=== PATIENT | female | born 1970 | race Hispanic/Latino ===

== ENCOUNTER 2020-06-27 18:40 | Emergency (ER) | payer BC | END 2020-06-27 19:54 | disposition home or self-care (01) | LOC: EDH 18:40 | DX: S76.112A Strain of left quadriceps muscle, fascia and tendon, initial encounter (principal); Z98.890 Other specified postprocedural states; W01.0XXA Fall on same level from slipping, tripping and stumbling without subsequent striking against object, initial encounter; Y93.89 Activity, other specified; Y92.89 Other specified places as the place of occurrence of the external cause; Y99.8 Other external cause status | CPT/HCPCS: 99281 ==

== ENCOUNTER 2021-07-27 07:26 | Emergency (ER) | payer BC ==
[~2021-07-27] VITALS: Ht 154.9 cm; Wt 70.3 kg
[2021-07-27 07:58] LABS: BASOPHILS % (AUTO) 0.3 % (0.0-5.0); EOSINOPHILS % (AUTO) 1.6 % (0.0-8.0); LYMPHOCYTES % (AUTO) 20.1 % (21.0-51.0); MEAN CORPUSCULAR VOLUME 87.5 fL (79-99); NEUTROPHILS % (AUTO) 72.5 % (40.0-77.0); PLATELET COUNT (AUTO) 295 K/uL (130-400); RED BLOOD CELL COUNT(AUTO) 5.14 MIL/uL (4.00-5.50); WHITE BLOOD COUNT (AUTO) 9.8 K/uL (4.8-10.8)
[2021-07-27 07:59] LABS: APPEARANCE,URINE Clear (CLEAR); BILIRUBIN,URINE Negative (NEGATIVE); COLOR,URINE Dark Yellow (YELLOW); GLUCOSE, URINE (UA) Negative (NEGATIVE); KETONES,URINE Negative (NEGATIVE); LEUKOCYTE ESTERASE ,URINE Negative (NEGATIVE); NITRATE,URINE Negative (NEGATIVE); OCCULT BLOOD,URINE Negative (NEGATIVE); PH,URINE 5.5 (5.0-8.0); PROTEIN,URINE Negative (NEGATIVE)
[2021-07-27] MEDS ORDERED: KETOROLAC 30MG VIAL (30MG/ML) IV ONE (08:00)
[2021-07-27] MEDS ORDERED: ONDANSETRON 4MG INJ IVP ONE (08:00)
[2021-07-27 08:01] LABS: HCG,QUAL RESULT NEGATIVE (NEGATIVE)
[2021-07-27 08:12] LABS: ALBUMIN 3.9 g/dL (3.5-5.0); BILIRUBIN,TOTAL 0.3 mg/dL (0.2-1.0); CREATININE 0.7 mg/dL (0.5-1.5); POTASSIUM 3.8 mmol/L (3.5-5.1); TOTAL PROTEIN, SERUM 7.8 g/dL (6.0-8.3)
[2021-07-27 09:57] VITALS: BP 125/73
[2021-07-27] MEDS ORDERED: ACET1TAB25 PO (10:06)
== END 2021-07-27 10:16 | disposition home or self-care (01) ==
LOC: EDH 07:26
DX: K80.70 Calculus of gallbladder and bile duct without cholecystitis without obstruction (principal); R74.8 Abnormal levels of other serum enzymes; Z79.1 Long term (current) use of non-steroidal anti-inflammatories (NSAID); Z79.899 Other long term (current) drug therapy
CPT/HCPCS: 36415; 76705; 80053; 81003; 81025; 83690; 84484; 85025; 93005; 96374; 96375; 99284; J1885; J2405